=== PATIENT | female | born 1965 | race Caucasian/White ===

== ENCOUNTER → 2016-07-03 | Outpatient (CLI) | payer MEDICARE, MEDICAID ==
[~2016-07-03] MED LIST: ALLOPURINOL300 MG PO; CLARITIN 1010 MG/TAB PO; DARVOCET-N-101 UDTAB PO; DIFLUCAN PO; GEODON80 MG PO; HCTZ 25MG25 MG PO; HYGROTON25 MG PO; LISINOPRIL20 MG PO; LORATADINE10 MG PO; MVI; ONE DAILY1 TA1 PO; PROZAC 20MG20 MG PO; ULTRAM 50MG TAB50 MG PO; VITAMIN C500 MG PO; VITAMIN E-400200 IU PO; XANAX .25M0.25 MG/TA PO; ZYPREXA 5MG5 MG PO; vitamin A PO
== END ==
LOC: MC.RAD 10:09
DX: Z12.31 Encounter for screening mammogram for malignant neoplasm of breast (principal)

== ENCOUNTER → 2017-08-04 | Outpatient (CLI) | payer MEDICARE, MEDICAID | LOC: MC.RAD 08-03 10:20 | DX: Z12.31 Encounter for screening mammogram for malignant neoplasm of breast (principal) ==

== ENCOUNTER → 2018-09-06 | Outpatient (CLI) | payer MEDICARE, MEDICAID | LOC: MC.RAD 13:27 | DX: Z12.31 Encounter for screening mammogram for malignant neoplasm of breast (principal) ==